=== PATIENT | female | born 1975 | race Caucasian/White ===

== ENCOUNTER 2025-02-21 13:22 | Emergency (ER) | payer SELFPAY ==
[2025-02-21] MEDS: Carbamide Peroxide 6.5% Otic Soln 15 ML Bottle EARLF ONE (14:36)
== END 2025-02-21 14:58 | disposition home or self-care (01) ==
LOC: JP.ED 13:22
DX: H61.22 Impacted cerumen, left ear (principal); F17.200 Nicotine dependence, unspecified, uncomplicated; Z88.0 Allergy status to penicillin
CPT/HCPCS: 99282; 99282-25; A9270-GY